=== PATIENT | male | born 1965 | race Caucasian/White ===

== ENCOUNTER 2018-04-07 22:12 | Outpatient (REF) | payer BC, SELFPAY ==
[2018-04-07 23:05] LABS: ALT 45 U/L (12-78); AST 32 U/L (15-37); Albumin 4.4 g/dL (3.4-5.0); Alkaline Phosphatase 145 U/L (46-116); Anion Gap 9.8 mmol/L (3-11); BUN 11 mg/dL (7-18); Bilirubin, Total 0.7 mg/dL (0.2-1.0); CO2 29.2 mmol/L (21.0-32.0); CREATININE 1.13 mg/dL (0.70-1.30); Calcium 8.9 mg/dL (8.5-10.1); Chloride 101 mmol/L (98-107); Cholesterol 320 mg/dL (50-200); Glucose 96 mg/dL (70-100); HDL Cholesterol 52 mg/dL (40-60); LDL CHOLESTEROL 225 mg/dL (<100); Potassium 4.8 mmol/L (3.5-5.1); Sodium 140 mmol/L (136-145); Total Protein 7.9 g/dL (6.4-8.2); Triglyceride 311 mg/dL (30-150)
== END 2018-04-07 22:32 ==
LOC: NCHCN 22:12
PROVIDERS: Visit Provider Family Medicine
DX: I10 Essential (primary) hypertension (principal); E78.5 Hyperlipidemia, unspecified; E66.9 Obesity, unspecified
CPT/HCPCS: 80053; 80061; 83721

== ENCOUNTER 2019-10-01 15:06 | Outpatient (REF) | payer BC, SELFPAY ==
[2019-10-10 09:21] LABS: AST 27 U/L (15-37); Albumin 4.2 g/dL (3.4-5.0); Alkaline Phosphatase 124 U/L (46-116); Anion Gap 9.8 mmol/L (3-11); BUN 11 mg/dL (7-18); Bilirubin, Total 0.7 mg/dL (0.2-1.0); CO2 28.2 mmol/L (21.0-32.0); CREATININE 0.99 mg/dL (0.70-1.30); Calculated LDL 134 mg/dL (<100); Chloride 101 mmol/L (98-107); Cholesterol 210 mg/dL (<200); Glucose 82 mg/dL (74-106); HDL Cholesterol 44 mg/dL (40-60); Potassium 4.5 mmol/L (3.5-5.1); Sodium 139 mmol/L (136-145); Total Protein 7.3 g/dL (6.4-8.2); Triglyceride 164 mg/dL (<150)
[2019-10-10 09:22] LABS: ALT 32 U/L (16-63)
== END 2019-10-01 15:26 ==
LOC: NCHCN 15:06
PROVIDERS: PCP Family Medicine; Visit Provider Family Medicine
DX: I10 Essential (primary) hypertension (principal); E78.5 Hyperlipidemia, unspecified
CPT/HCPCS: 80053; 80061

== ENCOUNTER 2021-05-14 09:55 | Outpatient (REF) | payer BC, SELFPAY ==
[2021-05-14 16:57] LABS: Anion Gap 9.1 mmol/L (3-11); BUN 10 mg/dL (7-18); CO2 28.9 mmol/L (21.0-32.0); CREATININE 0.9 mg/dL (0.70-1.30); Calcium 9.6 mg/dL (8.5-10.1); Chloride 105 mmol/L (98-107); Glucose 95 mg/dL (74-106); Potassium 5.1 mmol/L (3.5-5.1); Sodium 143 mmol/L (136-145)
== END 2021-05-14 09:56 | disposition home or self-care (01) ==
LOC: NCHCN 09:55
PROVIDERS: PCP Family Medicine; Visit Provider Family Medicine
DX: Z00.00 Encounter for general adult medical examination without abnormal findings (principal); I10 Essential (primary) hypertension
CPT/HCPCS: 80048

== ENCOUNTER 2021-12-09 16:29 | Outpatient (REF) | payer BC, SELFPAY ==
[2021-12-09 15:27] LABS: ALT 54 U/L (16-63); AST 26 U/L (15-37); Albumin 4.4 g/dL (3.4-5.0); Alkaline Phosphatase 128 U/L (46-116); Anion Gap 8.7 mmol/L (3-11); BUN 10 mg/dL (7-18); Bilirubin, Total 0.5 mg/dL (0.2-1.0); CO2 28.3 mmol/L (21.0-32.0); CREATININE 1.1 mg/dL (0.70-1.30); Calculated LDL 133 mg/dL (<100); Chloride 103 mmol/L (98-107); Cholesterol 212 mg/dL (<200); Glucose 90 mg/dL (74-106); HDL Cholesterol 52 mg/dL (40-60); Potassium 4.6 mmol/L (3.5-5.1); Sodium 140 mmol/L (136-145); Total Protein 7.6 g/dL (6.4-8.2); Triglyceride 135 mg/dL (<150)
== END 2021-12-09 16:30 | disposition home or self-care (01) ==
LOC: NCHCN 16:29
PROVIDERS: PCP Family Medicine; Visit Provider Family Medicine
DX: Z00.00 Encounter for general adult medical examination without abnormal findings (principal); E78.5 Hyperlipidemia, unspecified; I10 Essential (primary) hypertension; E66.9 Obesity, unspecified
CPT/HCPCS: 80053; 80061

== ENCOUNTER 2023-08-02 11:36 | Outpatient (REF) | payer OTHER, SELFPAY ==
[2023-08-02 16:12] LABS: ALT 48 U/L (16-63); AST 34 U/L (15-37); Albumin 3.9 g/dL (3.4-5.0); Alkaline Phosphatase 107 U/L (46-116); Anion Gap 7.1 mmol/L (3-11); BUN 8 mg/dL (7-18); Bilirubin, Total 0.7 mg/dL (0.2-1.0); CO2 27.9 mmol/L (21.0-32.0); CREATININE 0.8 mg/dL (0.70-1.30); Calcium 9.1 mg/dL (8.5-10.1); Calculated LDL 104 mg/dL (<100); Chloride 103 mmol/L (98-107); Cholesterol 191 mg/dL (<200); Estimated GFR 103.87 (mL/min/1.73m2); Glucose 98 mg/dL (74-106); HDL Cholesterol 51 mg/dL (40-60); Potassium 4.2 mmol/L (3.5-5.1); Sodium 138 mmol/L (136-145); Total Protein 7.5 g/dL (6.4-8.2); Triglyceride 182 mg/dL (<150)
== END 2023-08-02 11:37 | disposition home or self-care (01) ==
LOC: NCHCN 11:36
PROVIDERS: PCP Family Medicine; Visit Provider Family Medicine
DX: Z00.00 Encounter for general adult medical examination without abnormal findings (principal); E78.5 Hyperlipidemia, unspecified; I10 Essential (primary) hypertension; E66.8 Other obesity
CPT/HCPCS: 80053; 80061